=== PATIENT | male | born 1945 | race Caucasian/White ===

== ENCOUNTER 2018-02-27 13:57 | Inpatient (IN) | payer OTHER ==
[~2018-02-27] VITALS: Ht 172.7 cm; Wt 102.5 kg
[2018-02-27 13:58] VITALS: BP 127/63
[2018-02-27] MEDS ORDERED: NEURONTIN 300300 M1 PO (14:08)
[2018-02-27] MEDS ORDERED: ROPINIROLE HCL2 MG PO (14:09)
[2018-02-27] MEDS ORDERED: PROTONIX40 M4 PO (14:09)
[2018-02-27] MEDS ORDERED: CARVEDILOL12.5 MG PO (14:09)
[2018-02-27] MEDS ORDERED: SYNTHROID50 MCG PO (14:09)
[2018-02-27] MEDS ORDERED: COZAAR 50 MG TA50 M1 PO (14:09)
[2018-02-27] MEDS ORDERED: ATORVASTATIN CA40 MG PO (14:10)
[2018-02-27] MEDS ORDERED: LASIX 40 MG TAB40 M2 PO (14:10)
[2018-02-27] MEDS ORDERED: ZOLOFT25 MG PO (14:10)
[2018-02-27] MEDS ORDERED: ASPIR 8181 MG PO (14:10)
[2018-02-27] MEDS ORDERED: KLOR-CON 1010 MEQ PO (14:10)
[2018-02-27 14:50] LABS: ABSOLUTE EOSINOPHILS 0.2 thou/uL (0.0-0.7); ABSOLUTE LYMPHOCYTES 1.4 thou/uL (0.8-5.3); ABSOLUTE MONOCYTES 0.4 thou/uL (0.0-1.2); ABSOLUTE NEUTROPHILS 4.8 thou/uL (1.6-8.1); BASOPHILS 0.3 %; EOSINOPHILS 2.4 %; HEMATOCRIT 38.5 % (42.0-52.0); HEMOGLOBIN 12.6 gm/dL (14.0-18.0); LYMPHOCYTES 20.6 %; MCH 28.2 pg (26.0-34.0); MCHC 32.7 g/dL (28.0-37.0); MCV 86.4 fL (80.0-100.0); MONOCYTES 5.5 %; MPV 7.4 fl. (7.2-11.1); NUCLEATED RBCS 0 /100WBC; PLATELET COUNT* 255 thou/uL (150-400); POLYS 71.2 %; RBC 4.46 mil/uL (4.50-6.00); RDW-CV 14.9 % (10.5-14.5); WBC 6.7 thou/uL (4.0-11.0)
[2018-02-27 15:07] LABS: ANION GAP 10 mmol/L (7-16); BUN 18 mg/dL (7-18); CALCIUM 9.1 mg/dL (8.5-10.1); CHLORIDE 104 mmol/L (98-107); CO2 29 mmol/L (21-32); CREATININE 1.3 mg/dL (0.6-1.3); GLUCOSE 157 mg/dL (70-99); POTASSIUM 3.5 mmol/L (3.5-5.1); SODIUM 143 mmol/L (136-145)
[2018-02-27 15:10] LABS: ALKALINE PHOSPHATASE 164 U/L (46-116); SGOT 23 U/L (15-37); SGPT 28 U/L (30-65); TOTAL BILIRUBIN 0.5 mg/dL (<0.1-1.0); TOTAL PROTEIN 8.1 g/dL (6.4-8.2); TROPONIN-I LEVEL <0.06 ng/mL (<0.06)
[2018-02-27 15:35] LABS: URINE BILIRUBIN NEGATIVE (Negative); URINE BLOOD TRACE (Negative); URINE CLARITY CLEAR; URINE COLOR YELLOW; URINE GLUCOSE-RANDOM NEGATIVE (Negative); URINE KETONES NEGATIVE (Negative); URINE LEUKOCYTES-REFLEX NEGATIVE (Negative); URINE NITRITE-REFLEX NEGATIVE (Negative); URINE PROTEIN NEGATIVE (Negative); URINE UROBILINOGEN 0.2 E.U./dl (0.2-1.0)
[2018-02-27 18:20] VITALS: BP 130/71
[2018-02-27 18:30] VITALS: BP 160/82
--- NOTE | 2018-02-27 19:32 | NUR ---
PT. ARRIVED TO UNIT AT APPROX. 1835. PT A/OX4, VSS, MONITOR PLACED. PT. ORIENTED TO ROOM/PROCEDURES. ADMISSION PROCESS STARTED. REPORT GIVEN TO MYKEL TO CONTINUE WITH ADMISSION.
[2018-02-27 19:35] VITALS: BP 161/73
--- NOTE | 2018-02-27 23:16 | NUR ---
ASSUMED CARE OF PT AT 1900. PT IS ALERT AND ORIENTED. VSS. PERRLA. STEADY GAIT. NO COMPLAINTS OF DIZZINESS. PT IS VPACED ON THE TELEMETRY. PT IS RESTING COMFORTABLY IN BED. RESPIRATIONS ARE EVEN AND NONLABORED. WILL CONTINUE TO MONITOR PT.
[2018-02-28] VITALS (8 sets, daily range): BP systolic 113–164; BP diastolic 55–93
[2018-02-28 03:14] LABS: HEMATOCRIT 35.5 % (42.0-52.0); HEMOGLOBIN 11.6 gm/dL (14.0-18.0); MCH 27.9 pg (26.0-34.0); MCHC 32.6 g/dL (28.0-37.0); MCV 85.8 fL (80.0-100.0); MPV 7.6 fl. (7.2-11.1); RBC 4.14 mil/uL (4.50-6.00); RDW-CV 14.8 % (10.5-14.5); WBC 6.7 thou/uL (4.0-11.0)
[2018-02-28 03:23] LABS: ALBUMIN 3.4 g/dL (3.4-5.0); CALCIUM 8.5 mg/dL (8.5-10.1); CREATININE 1.2 mg/dL (0.6-1.3); POTASSIUM 3.5 mmol/L (3.5-5.1)
[2018-02-28 03:34] LABS: TOTAL BILIRUBIN 0.3 mg/dL (<0.1-1.0); TOTAL PROTEIN 7.1 g/dL (6.4-8.2)
--- NOTE | 2018-02-28 10:00 | NUR ---
ASSUMED PT CARE AT 0730, FULL ASSESMENT DONE CHARTED. PT A/O X4, DENIES PAIN, DENIES DIZZYNESS. PTS VSS, AV PACED ON THE MONITOR. PT WANTS TO EAT, NPO FOR CARDIOLOGY CONSULT. ATTEMPING TO FIND OUT WHAT TYPE OF PACEMAKER HAS SO IT CAN BE INTERROGATED TODAY. PT HAS FALL PRECAUTIONS IN PLACE BUT NEEDS REMINDERS TO CALL WHEN AMBULATING. WILL CONTINUE WITH PLAN OF CARE
--- NOTE | 2018-02-28 11:42 | EKG ---
[place] [address] ELECTROCARDIOGRAM REPORT Name: LIANNE HARVEY Room: [address] ADM IN .R.#: [id number] Admission: 02/27/18 Attend Phys: Amanda Henley MD Discharge: Date of : 47 Report #: [id number] THIS REPORT FOR: //name// [facility] ED Test Date: 2018-02-27 Test Time: 14:02:08 Pat Name: LIANNE HARVEY Department: Room: [facility] Gender: M Will Call Clerk: Heike BELL : 1945 Requested By: Nicolasa Becker Order Number: [id number] MD: Amos Patiño Measurements Intervals [place] Rate: 72 P: 65 MI: 146 QRS: -85 QRSD: 174 T: 111 QT: 456 QTc: 500 Interpretive Statements A-V dual-paced rhythm with some inhibition No further analysis attempted due to paced rhythm No previous ECG available for comparison Electronically Signed On 02-28-2018 11:42:15 CDT by Amos Patiño [email or web address] <ELECTRONICALLY SIGNED> By: Amos Patiño MD, [facility] 02/28/18 1142 1402 1402 Amos Patiño MD, [facility] /EPI
--- NOTE | 2018-02-28 15:00 | NUR ---
SPOKE WITH PT.AND IN ROOM. INTRODUCED ROLE OF CM. PT.SAID HE WAS INDEPENDENT AT HOME. DOES NOT USE ANY DME. NO HX OF DME OR HH. HE WAS WAITING TO GET HIS PACEMAKER INTERROGATED AND IF OK HE WILL DISCHARGE. NO DISCHARGE NEEDS.
--- NOTE | 2018-02-28 15:07 | 2DMMODE ---
[place] [address] 2 D/M-MODE ECHOCARDIOGRAM Name: LIANNE HARVEY Room: [address] [place] [facility] [id number] Admission: 02/27/18 Attend Phys: Amanda Henley, Discharge: Date of : 47 Date of Service: 02/28/18 1507 Report #: [id number] THIS REPORT FOR: //name// APPROVED REPORT Study performed: 02/28/2018 11:48:34 EXAM: Comprehensive 2D, Doppler, and color-flow Echocardiogram Patient Location: In-Patient Room #: 220 Status: routine BSA: 2.15 HR: 77 bpm BP: 132/77 mmHg Rhythm: NSR Other Information Study Quality: Good Indications Pacemaker Syncope 2D Dimensions IVSd: 16.47 (7-11mm) LVOT Diam: 19.89 (18-24mm) LVDd: 69.42 mm PWd: 8.09 (7-11mm) Ascending Ao: 33.32 (22-36mm) LVDs: 64.65 (25-40mm) Aortic Root: 31.99 mm Volumes Left Atrial Volume (Systole) LA ESV Index: 51.50 mL/m2 Aortic Valve AoV Peak Edgar.: 1.39 m/s AO Peak Gr.: 7.77 mmHg LVOT Max P.40 mmHg AO Mean Gr.: 4.44 mmHg LVOT Mean P.01 mmHg LVOT Max V: 1.05 m/s AO V2 VTI: 28.36 cm LVOT Mean V: 0.64 m/s KM (VTI): 2.21 cm2 LVOT V1 VTI: 20.17 cm Mitral Valve E/A Ratio: 0.83 MV Decel. Time: 190.62 [place] [address] 2 D/M-MODE ECHOCARDIOGRAM Name: LIANNE HARVEY Room: [address] IN .R.#: [id number] Admission: 02/27/18 Attend Phys: Amanda Henley, Discharge: Date of : 47 Date of Service: 02/28/18 1507 Report #: [id number] MV E Max Edgar.: 1.16 m/s MV PHT: 55.28 ms MVA (PHT): 3.98 cm2 TDI E/Lateral E': 19.33 E/Medial E': 19.33 Medial E' Edgar.: 0.06 m/s Lateral E' Edgar.: 0.06 m/s Pulmonary Valve PV Peak Edgar.: 0.72 m/s PV Peak Gr.: 2.04 mmHg Tricuspid Valve RAP Estimate: 5.00 mmHg TR Peak Gr.: 38.55 mmHg RVSP: 43.55 mmHg PA Pressure: 43.55 mmHg Left Ventricle Left ventricle is moderately dilated. Regional wall motion abnormalities are noted.Inferior wall is akinetic. There is global hypokinesis ,moderate in severity elsewhere. Paradoxical septal motion consistent with paced rhythm. Moderate septal hypertrophy. Left ventricular systolic function is moderately decreased. LVEF is 25-30%. Grade I - abnormal relaxation pattern. Right Ventricle The right ventricle is normal size. The right ventricular systolic function is normal. Pacemaker lead is present in the right ventricle. Atria Left atrium is severely dilated. The right atrium size is normal. Aortic Valve The aortic valve is normal in structure. Mild aortic regurgitation. There is no aortic valvular stenosis. Mitral Valve There is mitral annular calcification,severe, the PMVL is redundant. Moderate to severe eccentric mitral regurgitation. No evidence of mitral valve stenosis. Tricuspid Valve The tricuspid valve is normal in structure. Mild tricuspid regurgitation. Mod[place] [address] 2 D/M-MODE ECHOCARDIOGRAM Name: LIANNE HARVEY Room: [address]#: [id number] Admission: 02/27/18 Attend Phys: Amanda Henley, Discharge: Date of : 47 Date of Service: 02/28/18 1507 Report #: [id number] Pulmonic Valve The pulmonary valve is normal in structure. Mild pulmonic regurgitation. Great Vessels The aortic root is normal in size. IVC is normal in size and collapses >50% with inspiration. Pericardium There is no pericardial effusion. <Conclusion> LVEF is 25-30%. Regional wall motion abnormalities are noted.Inferior wall is akinetic. There is global hypokinesis ,moderate in severity elsewhere. Paradoxical septal motion consistent with paced rhythm. Grade I - abnormal relaxation pattern. Moderate septal hypertrophy. Left ventricle is moderately dilated. Left atrium is severely dilated. There is no aortic valvular stenosis. Mild aortic regurgitation. There is mitral annular calcification,severe, the PMVL is redundant. Moderate to severe eccentric mitral regurgitation. Mild tricuspid regurgitation. Moderate pulmonary hypertension. Mild pulmonic regurgitation. There is no pericardial effusion. <ELECTRONICALLY SIGNED> By: Amos Patiño MD, FACC 02/28/18 1507 1507 1507 Amos Patiño MD, FACC /INF
--- NOTE | 2018-02-28 18:55 | NUR ---
NOTIFIED DR HENRIQUEZ OF PACEMAKER INTERROGATION RESULTS, PT WILL NOT DC HOME TODAY, STARTED PT ON AMIO LOAD, EDUCATED PT AND , QUESTIONS ANSERED. WILL CONTINUE TO MONITOR.
--- NOTE | 2018-02-28 23:29 | NUR ---
ASSUMED CARE OF PT AT 1900. PT IS ALERT AND ORIENTED. VSS. PERRLA. NO COMPLAINTS OF PAIN. STEADY GAIT. UP WITH STAND BY ASSIST. PT IS AV PACED ON THE TELEMETRY. PT IS RESTING COMFORTABLY IN BED. RESPIRATIONS ARE EVEN AND NONLABORED. WILL CONTINUE TO MONITOR PT.
[2018-03-01 00:04] VITALS: BP 141/79
--- NOTE | 2018-03-01 00:06 | NUR ---
ASSUMED CARE OF PT AT 1900. PT IS ALERT AND ORIENTED. VSS. PERRLA. NO COMPLAINTS OF PAIN. STEADY GAIT. PT IS AV PACED ON THE TELEMETRY. PT IS RESTING COMFORTABLY IN BED. RESPIRATIONS ARE EVEN AND NONLABORED. WILL CONTINUE TO MONITOR PT.
[2018-03-01 04:36] VITALS: BP 138/82
[2018-03-01 07:40] VITALS: BP 160/87
--- NOTE | 2018-03-01 10:00 | NUR ---
ASSUMED CARE OF PATIENT AFTER REC'G REPORT FROM LELAND RN. PT IS A & O X4. HIV/AIDS CARE NURSE IN PLACE, A-V PACED. O2 SAT 97% ON RA. IV SL. PT APPROPRIATELY ASKING FOR ASSISTANCE WHILE AMBULATING. ASSESSMENT COMPLETE, DOCUMENTED. MEDS PER AUG. CALL LIGHT IN REACH.
[2018-03-01 12:00] VITALS: BP 136/79
[2018-03-01 15:45] VITALS: BP 114/69
--- NOTE | 2018-03-01 18:00 | NUR ---
PT UP AD REBEKAH THIS AFTERNOON WITH STEADY GAIT. PT EXPRESSED CONCERN EARLIER TODAY ABOUT HIS SYNCOPAL EPISODE. PT IS ANXIOUS THAT THIS MAY HAPPEN AGAIN WITHOUT ANY PREVIOUS INDICATION, PERHAPS WHILE HE IS DRIVING. EDUCATION GIVEN TO PATIENT ABOUT DISCUSSING THIS CONCERN WITH PHYSICIAN. PT STATES THAT HIS USUALLY DRIVES BUT THAT OCCASIONALLY HE WILL DRIVE SHORT DISTANCES. PT CONTINUES TO BE A & O X4, CRTS IN PLACE, A-V PACED. PT IS ABLE TO COMMUNICATE NEEDS TO STAFF. CALL LIGHT IN REACH.
[2018-03-01 20:08] VITALS: BP 141/80
[2018-03-02] VITALS (7 sets, daily range): BP systolic 124–152; BP diastolic 61–89
--- NOTE | 2018-03-02 05:06 | NUR ---
PT IS ABLE TO COMMUNICATE HIS NEEDS TO STAFF EFFECTIVELY. HE HAS DENIED THE NEED FOR PAIN MEDICATION UP TO THIS TIME. PT MAY POSSIBLY BE DISCHARGED LATER TODAY.
[2018-03-02] MEDS ORDERED: PACERONE 200 M200 M1 PO ×2 (12:37→13:00)
--- NOTE | 2018-03-02 14:59 | NUR ---
PT GIVEN DISCHARGE INFORMATION AT THIS TIME. IV REMOVED. PT DENIED ANY FURTHER QUESTIONS AT THIS TIME. PT LEFT WITH NURSING STAFF VIA WHEELCHAIR WITH SPOUSE TO HOME CARE.
--- NOTE | 2018-03-15 12:26 | CON ---
[facility] [address] [place] [address] CONSULTATION Name: LIANNE HARVEY Room: [address] IN .R.#: [id number] Admission: 02/27/18 Attend Phys: Amanda Henley MD Discharge: 03/02/18 Date of : 47 Report #: [id number] THIS REPORT FOR: //name// CC: Amanda Ray DATE OF SERVICE: 02/28/2018 REQUESTING PHYSICIAN: Amanda Henley M.D. REASON FOR CONSULTATION: Syncope and history of congestive heart failure. HISTORY OF PRESENT ILLNESS: The patient is a 72-year-old male who usually gets his care from a cardiovascular standpoint from the [facility]. He was working outside and then, he went inside and took a shower and then was going to go back outside and he had found himself on the ground with a brief loss of consciousness. When he arose, he was not having any chest pain or shortness of breath. He did not have any prodrome symptoms of palpitations or any defibrillator shocks. He feels fine this morning. He was admitted overnight. His cardiac troponin levels have been unremarkable and his telemetry demonstrates an AV paced rhythm. PAST MEDICAL HISTORY: He has a Medtronic Bi-V ICD implanted for the diagnosis of ischemic cardiomyopathy and has severe LV dysfunction based on records from the [place] we obtained. His ejection fraction is in the 30% range. He is followed by the [facility]. He has a history of 4-vessel CABG in 2000. His data from the [place] indicates he has a large inferior scar and prior stress testing. Overall, he has done well without any recent hospitalizations according to the patient. He has not had congestive heart failure. He does not have any angina type symptoms. His last catheterization in 2009 demonstrated severe diffuse disease and medical therapy was recommended. He has a history of moderate mitral regurgitation. Other medical problems include hyperlipidemia and degenerative joint disease. SOCIAL HISTORY: He is a nonsmoker. HOME MEDICATIONS: Include robinul, Protonix, losartan 50 mg daily, Coreg 12.5 mg p.o. b.i.d., Synthroid 50 mcg daily, baby aspirin, Lasix 40 mg once daily, Zoloft 25 mg daily, potassium chloride 10 mEq p.o. b.i.d., atorvastatin 40 mg daily and gabapentin 300 mg p.o. b.i.d. REVIEW OF SYSTEMS: GENERAL: No fevers or chills. PULMONARY: No [place] [address] CONSULTATION Name: LIANNE HARVEY Tree Room: [address]#: [id number] Admission: 02/27/18 Attend Phys: Amanda Henley MD Discharge: 03/02/18 Date of : 47 Report #: [id number] THROAT: Denies any dysphagia. EYES: No blurry vision or loss of vision. He does have cataracts, actually scheduled for surgery in the next month. NEUROLOGICAL: No history of seizure disorder. HEMATOLOGIC: No anemia or bleeding disorders. ALLERGIES: No contrast allergies. PHYSICAL EXAMINATION: VITAL SIGNS: Blood pressure is 147/82 with a pulse of 70, AV paced. GENERAL: This is a pleasant elderly male who is alert, sitting up in bed. He is in no apparent distress. HEENT: Eyes are intact. No facial asymmetry. NECK: Supple. No jugular venous distention. No evidence of trauma and carotid upstrokes are normal. There are no bruits. CARDIOVASCULAR: Regular. I cannot hear an S3. There is a faint apical murmur. LUNGS: Clear to auscultation bilaterally. ABDOMEN: Soft, nontender and nondistended. EXTREMITIES: There is no peripheral edema. SKIN: Warm and dry. RADIOLOGICAL DATA: Electrocardiogram demonstrates an AV paced rhythm. His CT scan of the brain shows no acute intracranial abnormality. His sodium is 140, potassium 3.5, chloride is 104, BUN is 19 and creatinine is 1.2. Troponin I is 0.06. AST is 21 and ALT is 20. NT-pro-BNP is 864. Hemoglobin is 11.6 and white blood count is 6.7. IMPRESSION AND RECOMMENDATIONS: 1. Syncope and collapse. This seems to be vasovagal based on the patient's historical data but he certainly does have risk factors for a significant cardiac dysrhythmia. We will obtain a device interrogation of his Medtronic device via the mine inspector's representatives. If this does not show any significant dysrhythmia, he can be discharged to follow up with his usual cardiovascular providers. 2. Ischemic cardiomyopathy, chronic systolic dysfunction. He seems clinically compensated based on my brief visit with him. I think he functions at a class 2 level. I did not make any changes to his medications. 3. Coronary artery disease status post remote coronary artery bypass grafting. He has previously been evaluated and recommended medical therapy and I see no reason to deviate from this plan. He reports no significant angina. 4. Mitral regurgitation. He does not present with heart failure. Thank you for allowing us to participate in his care. <ELECTRONICALLY SIGNED> By: Amos Patiño MD, [facility] 03/15/18 1226 1124 1232Maral Wyatt Patiño MD, FACC /nt
--- NOTE | 2018-03-17 09:50 | EEG ---
[address] [address] EEG STUDY REPORT Name: HARVEYLIANNE Tree Room: [address] IN M.R.#: [id number] Admission: 02/27/18 Attend Phys: Amanda Henley MD Discharge: 03/02/18 Date of : 47 Report #: [id number] THIS REPORT FOR: //name// CC: Amanda Weinstein Cory DATE OF SERVICE: 02/28/2018 This patient is being evaluated for syncope. EEG was done by placing the electrodes by standard 10-20 system of electrode placement. Both referential and sequential montages were used for recording. Background activity in this patient's EEG is about 10 Hz and 30 microvolt. It is a symmetrical activity. Photic stimulation was unremarkable. This patient went to sleep that is associated with bilaterally symmetrical sleep spindle and vertex sharp waves. Throughout the record, no active epileptiform activity was noticed. IMPRESSION: This patient's EEG is within normal limit. Thank you very much for this referral. <ELECTRONICALLY SIGNED> By: Alex Gonzalez MD 03/17/18 0950 1426 1434Pfabiola Gonzalez MD /nt
== END 2018-03-02 14:45 | disposition home or self-care (01) | DRG 309 ==
LOC: M.ERS 13:57 → M.2W 16:53 → M.TBA-ER 16:53 → M.2W 18:41
PROVIDERS: Emergency Medicine Emergency Medical Services; Physician Assistant Surgical; ADMIT Internal Medicine
DX: I48.91 Unspecified atrial fibrillation (principal); I50.22 Chronic systolic (congestive) heart failure; R55 Syncope and collapse; I25.5 Ischemic cardiomyopathy; I25.10 Atherosclerotic heart disease of native coronary artery without angina pectoris; I34.0 Nonrheumatic mitral (valve) insufficiency; E78.00 Pure hypercholesterolemia, unspecified; G25.81 Restless legs syndrome; I10 Essential (primary) hypertension; Z95.1 Presence of aortocoronary bypass graft; Z79.899 Other long term (current) drug therapy; Z95.0 Presence of cardiac pacemaker

== ENCOUNTER 2020-04-07 09:30 | Emergency (ER) | payer OTHER ==
[~2020-04-07] VITALS: Ht 170.2 cm; Wt 81.2 kg
[~2020-04-07 09:30] MED LIST: ASPIR 8181 MG PO; ATORVASTATIN CA40 MG PO; CARVEDILOL12.5 MG PO; COZAAR 50 MG TA50 M1 PO; KLOR-CON 1010 MEQ PO; LASIX 40 MG TAB40 M2 PO; NEURONTIN 300300 M1 PO; PACERONE 200 M200 M1 PO; PROTONIX40 M4 PO; ROPINIROLE HCL2 MG PO; SYNTHROID50 MCG PO; ZOLOFT25 MG PO
[2020-04-07] MEDS ORDERED: SLOW FE142 MG PO (09:50)
[2020-04-07] MEDS ORDERED: COLACE100 MG PO (09:50)
[2020-04-07] MEDS ORDERED: PROAIR HFA8.5 GM INH (09:50)
[2020-04-07] MEDS ORDERED: METFORMIN HCL500 M3 PO (09:51)
[2020-04-07 10:18] LABS: HEMATOCRIT 38.4 % (42.0-52.0); HEMOGLOBIN 12.5 gm/dL (14.0-18.0); MCH 29.4 pg (26.0-34.0); MCHC 32.5 g/dL (28.0-37.0); MCV 90.6 fL (80.0-100.0); MPV 7.8 fl. (7.2-11.1); NUCLEATED RBCS 0 /100WBC; PLATELET COUNT* 275 thou/uL (150-400); RBC 4.24 mil/uL (4.50-6.00); WBC 6.4 thou/uL (4.0-11.0)
[2020-04-07 10:22] LABS: BE -3.1 mmol/L (-2 to +3); PCO2 VENOUS 36.5 mmHg (41.0-51.0); PO2 VENOUS 77.7 mmHg (35.0-45.0)
[2020-04-07 10:33] LABS: CALCIUM 8.6 mg/dL (8.5-10.1); CREATININE 1.4 mg/dL (0.6-1.3); POTASSIUM 4.5 mmol/L (3.5-5.1)
[2020-04-07 10:35] LABS: APTT 21.1 Seconds (25.0-31.3); PROTIME 10.2 Seconds (9.20-11.50)
[2020-04-07 10:39] LABS: ALBUMIN 2.9 g/dL (3.4-5.0); TOTAL BILIRUBIN 0.8 mg/dL (<0.1-1.0); TOTAL PROTEIN 7.3 g/dL (6.4-8.2)
[2020-04-07 10:43] LABS: ABSOLUTE LYMPHOCYTES 0.2 thou/uL (0.8-5.3); ABSOLUTE MONOCYTES 0.1 thou/uL (0.0-1.2); ABSOLUTE NEUTROPHILS 6.1 thou/uL (1.6-8.1); PLATELET ESTIMATE ADEQUATE
[2020-04-07 12:25] LABS: URINE BILIRUBIN NEGATIVE (Negative); URINE BLOOD 2+ (Negative); URINE CLARITY CLEAR; URINE COLOR YELLOW; URINE GLUCOSE-RANDOM 3+ (Negative); URINE KETONES 1+ (Negative); URINE LEUKOCYTES-REFLEX NEGATIVE (Negative); URINE NITRITE-REFLEX NEGATIVE (Negative); URINE PROTEIN 1+ (Negative); URINE SPECIFIC GRAVITY 1.015 (1.005-1.030); URINE UROBILINOGEN 0.2 E.U./dl (0.2-1.0)
[2020-04-07 12:35] LABS: BACTERIA-REFLEX 1-9 Few /HPF (None Seen); SQUAMOUS 4-10 Moderate /LPF (0-3); URINE RBC 3-10 Few /HPF (0-2); URINE WBC-REFLEX 0-5 Rare /HPF (0-5)
[2020-04-07 12:36] LABS: CASTS None Seen /LPF (None Seen); CRYSTALS None Seen /LPF (None Seen); MUCUS None Seen strn/LPF (None Seen)
[2020-04-07 14:15] VITALS: BP 154/89
--- NOTE | 2020-04-07 17:08 | EKG ---
[place] [address] ELECTROCARDIOGRAM REPORT Name: LIANNE HARVEY Room: [facility]#: [id number] Admission: 04/07/20 Attend Phys: Discharge: 04/07/20 Date of : 47 Date of Service: 04/07/20 1006 Report #: [id number] THIS REPORT FOR: //name// [facility] ED Test Date: 2020-04-07 Test Time: 10:06:09 Pat Name: LIANNE HARVEY Department: Room: Gender: Business Applications Manager: [facility] : 1945 Requested By: Dong Villanueva Order Number: [id number] MD: Cuauhtemoc Pugh Measurements Intervals [place] Rate: 87 P: 46 VT: 149 QRS: -87 QRSD: 198 T: 98 QT: 481 QTc: 579 Interpretive Statements Atrial-sensed ventricular-paced complexes No further analysis attempted due to paced rhythm Compared to ECG 02/27/2018 14:02:08 No significant changes Electronically Signed On 04-07-2020 17:08:43 CDT by Cuauhtemoc Pugh [email or web address] <ELECTRONICALLY SIGNED> By: Cuauhtemoc Pugh MD, FACC 04/07/20 1708 1006 1006 Cuauhtemoc Pugh MD, FACC /EPI
== END 2020-04-07 14:15 | disposition short-term general hospital (02) ==
LOC: M.ERS 09:30
PROVIDERS: Family Medicine
DX: U07.1 COVID-19 (principal); I21.4 Non-ST elevation (NSTEMI) myocardial infarction; N17.9 Acute kidney failure, unspecified; E11.9 Type 2 diabetes mellitus without complications; I10 Essential (primary) hypertension; E78.00 Pure hypercholesterolemia, unspecified; I25.2 Old myocardial infarction; Z79.899 Other long term (current) drug therapy; Z79.82 Long term (current) use of aspirin